=== PATIENT | female | born 1980 | race Caucasian/White ===

== ENCOUNTER 2021-11-30 11:13 | Outpatient (RCR) | payer OTHER, SELFPAY ==
[2021-11-30 12:37] LABS: Hematocrit 30.4 % (37.0-47.0); Hemoglobin 10.2 g/dL (12.0-15.0)
[2021-11-30 13:03] LABS: Glucose 1 Hour PP 50gm Dose 129 mg/dL
[2021-11-30 13:11] LABS: Vitamin D 25 Hydroxy 56.5 ng/mL
[2021-11-30 13:31] LABS: HIV 1/2 Ab P24 Ag Result Negative (Negative)
[2021-11-30] MEDS: RHO(D) IMMUNE GLOBULIN 300 MCG/2 ML SYRINGE IM (16:26)
== END 2022-02-28 23:59 | disposition home or self-care (01) ==
LOC: ANHLAB 11:13
PROVIDERS: PCP Family Medicine; Visit Provider Obstetrics & Gynecology Gynecology
DX: Z11.4 Encounter for screening for human immunodeficiency virus [HIV] (principal); Z29.13 Encounter for prophylactic Rho(D) immune globulin; O36.0190 Maternal care for anti-D [Rh] antibodies, unspecified trimester, not applicable or unspecified; Z3A.00 Weeks of gestation of pregnancy not specified
CPT/HCPCS: 36415; 82306; 82947; 85014; 85018; 85461; 86703; 90384; 96372; G0432; J2790

== ENCOUNTER 2022-03-01 05:11 | Inpatient (IN) | payer OTHER, SELFPAY ==
[2022-03-01] VITALS (120 sets, daily range): BP systolic 63–143; BP diastolic 29–94; PULSE 25–123; RESP 14–18; TEMP 36.1–36.9; O2SAT 81–100
[2022-03-01 05:54] LABS: Basophils Absolute Auto 0.1 K/mm3 (0.0-0.1); Basophils Percent Auto 0.6 % (0.2-1.2); Eosinophils Absolute Auto 0.1 K/mm3 (0-0.3); Eosinophils Percent Auto 0.9 % (0-4.4); Hematocrit 38.7 % (37.0-47.0); Hemoglobin 12.8 g/dL (12.0-15.0); Immature Granulocyte Absolute 0.08 K/mm3 (0.00-0.031); Immature Granulocyte Percent A 0.9 % (0-0.5); Lymphocytes Absolute Auto 1.37 K/mm3 (0.9-3.2); Lymphocytes Percent Auto 15.9 % (18.3-44.2); Mean Corpuscular HGB Conc 33.1 g/dl (32-36); Mean Corpuscular Hemoglobin 35.1 pg (26-34); Mean Platelet Volume 10.5 fl (7.4-10.4); Monocytes Absolute Auto 0.5 K/mm3 (0.1-0.6); Monocytes Percent Auto 5.7 % (2.6-8.5); Neutrophils Absolute Auto 6.6 K/mm3 (1.3-6.7); Platelet Count Result 135 k/mm3 (150-375); Red Blood Count 3.65 M/mm3 (4.2-5.4); Red Cell Distribution Width 14.4 % (11.5-14.5); White Blood Count 8.6 K/mm3 (4.5-10.0)
--- NOTE | 2022-03-01 05:54 | LDADM ---
This patient, Lourdes Rosen, was admitted to Labor/Delivery/Recovery 107 on 03/01/22 at 05:11. Plans for labor, pain management and were discussed with patient. Patient/family oriented to hospital policies and general routines including ID bracelet, bed and alarms, visiting hours, pain management, procedures, bathroom and other care routines, personal items, smoking policy, room service/diet and guest tray routines, infant security routines, and visiting hours. Patient/Family are encouraged to report perceived risks to care and to ask questions if they do not understand what they are told or what they should do. See OBIX for further documentation.
[2022-03-01] MEDS: LACTATED RINGERS 1,000 ML 125 ML IV CONT ×2 (06:38→10:39)
[2022-03-01] MEDS: OXYTOCIN 30 UNITS/NS 500 ML 30 UNITS/500 ML BAG IV CONT (06:38)
[2022-03-01 06:49] LABS: HIV 1/2 Ab P24 Ag Result Negative (Negative)
--- NOTE | 2022-03-01 08:14 | WPDOBADMIT ---
Obstetrics - Admit Note Admission Note: record reviewed. No pertinent additions to the history and/or any subsequent changes in the physical findings that are not consistent with the expected course of the were found. Additions to the history and/or subsequent changes in the physical findings follow. Here for MIL at 39 wks. Cervix 2-3/50/-2 posterior. AROM with clear fluid. FHTs category I. Continue Pitocin per protocol. Plans epidural.
[2022-03-01 14:41] LABS: Rapid Plasma Reagin Non-Reactive (NonReactive)
--- NOTE | 2022-03-01 14:50 | PM.OBPRVD ---
OB - Delivery Note Procedure Delivery date: 03/01/22 Procedure: Events: Other (39 wk MIL) Induction method: AROM and Per Pitocin Protocol Delivery monitor: External FHT and External Uterine Route of delivery: Laceration Description: Perineal - 2nd Degree Delivery repair: vicryl (3-0) Specimen: No Quantitative Blood Loss (ml): 300 Anesthesia type: Epidural Disposition: Floor Baby Date of : 03/01/22 Weeks of gestation at delivery: 39 Infant gender: Male Weight (pounds): 8 Weight (ounces): 15 presentation: vertex position: Right Occiput Anterior Placenta delivery description: Spontaneous Cord Vessel Description: 3 Vessels score one minute: 8 score five minutes: 9
--- NOTE | 2022-03-01 14:51 | PM.OBDSVD ---
DS: Admitting Diagnosis Discharge Date 03/02/22 Admitting Diagnosis IUP 39 wks for MIL DS: Discharge Diagnosis Discharge Diagnosis (1) (normal spontaneous vaginal delivery): Code(s): O80 - Encounter for full-term uncomplicated delivery Status: Acute OB - DS: Summary OB Procedures : Ultrasound OB Procedures Intrapartum: Spontaneous Vag Delivery OB Procedures: : None Peripartum Data Infant Delivery Method: Natural Vaginal Laceration Description: Perineal - 2nd Degree Status at Discharge Functional status at discharge: independent ambulation Overall status at discharge: patient is progressing back to baseline Time Spent with Patient Time attestation: Total time spent providing and/or coordinating discharge services: DS: Data Data Completed and Pending Labs on day of discharge: Labs from last 24 hours 03/01/22 03/01/22 03/01/22 06:25 05:42 05:42 WBC 8.6 RBC 3.65 L Hgb 12.8 Hct 38.7 MCV 106.0 H MCH 35.1 H MCHC 33.1 RDW 14.4 Plt Count 135 L MPV 10.5 H Immature Gran % (Auto) 0.9 H Neut % (Auto) 76.0 H Lymph % (Auto) 15.9 L Dillon % (Auto) 5.7 Eos % (Auto) 0.9 Baso % (Auto) 0.6 Lymph # (Auto) 1.37 Dillon # (Auto) 0.5 Eos # (Auto) 0.1 Baso # (Auto) 0.1 Abs Immat Gran (auto) 0.08 H Absolute Neuts (auto) 6.6 Absolute Nucleated RBC 0.0 Nucleated RBC % 0.0 RPR Non-reactive HIV 1&2 Ab/P24 Ag 4thGn Blood Type O Negative Antibody Screen Negative 03/01/22 05:42 WBC RBC Hgb Hct MCV MCH MCHC RDW Plt Count MPV Immature Gran % (Auto) Neut % (Auto) Lymph % (Auto) Dillon % (Auto) Eos % (Auto) Baso % (Auto) Lymph # (Auto) Dillon # (Auto) Eos # (Auto) Baso # (Auto) Abs Immat Gran (auto) Absolute Neuts (auto) Absolute Nucleated RBC Nucleated RBC % RPR HIV 1&2 Ab/P24 Ag 4thGn Negative Blood Type Antibody Screen Discharge Plan Discharge Attending physician on discharge: Amelie Raygoza Discharging Clinician: Amelie Raygoza Anticipated Discharge Date/Time: 03/02/22 14:52 Patient Disposition: Home, Self-Care Activity: may shower and pelvic rest Diet: regular Patient Instructions: Antibiotic Form Stand Alone Forms: General Discharge Information Follow-up/Referrals: Amelie Raygoza MD [Physician] - 6 Weeks Discharge Medications: Continued ferrous sulfate [Iron (ferrous sulfate)] 325 mg (65 mg iron) Tablet 325 mg PO BID #2 Tablet 1 tablet PO DAILY cetirizine [Zyrtec] 10 mg Tablet 10 mg PO DAILY Discontinued aspirin [Anna Low Dose Aspirin] 81 mg Tablet,Delayed Release (Dr/Ec) 81 mg PO DAILY Date of admission: 03/01/22 05:11 Primary Care Provider: Mg,Shan Damon Admitting Provider: Amelie Raygoza Attending physician on admission: Amelie Raygoza Condition: Stable
[2022-03-01] MEDS: OXYTOCIN 30 UNITS/NS 500 ML 30 UNITS/500 ML BAG 125 UNITS IV CONT (15:11)
[2022-03-01] MEDS: BENZOCAINE 20% AER SPR (*SP) 56 GM CAN 1 SPRAY TOPICAL (16:19)
[2022-03-01] MEDS: WITCH HAZEL 40 PADS 1 PAD TOPICAL (16:19)
[2022-03-01] MEDS: IBUPROFEN 600 MG TABLET PO ×2 (16:19→22:21)
--- NOTE | 2022-03-01 16:49 | PC.NURSE ---
report given to MARIAH Quintero
--- NOTE | 2022-03-01 17:43 | OBPPTRN ---
Patient transferred to post room # 290 via wheelchair. Support person present. Oriented to unit, room, information board, rooming in, admission packet and security measures. Patient verbalizes understanding.
[2022-03-01] MEDS: ACETAMINOPHEN 325 MG TABLET 650 MG PO (18:31)
[2022-03-02] MEDS: ACETAMINOPHEN 325 MG TABLET 650 MG PO ×3 (01:11→21:18)
[2022-03-02 03:34] VITALS: BP 108/69; PULSE 64; RESP 18; TEMP 36.3; O2SAT 99
[2022-03-02] MEDS: IBUPROFEN 600 MG TABLET PO ×4 (04:48→23:20)
[2022-03-02 05:24] LABS: Hematocrit 32.9 % (37.0-47.0); Hemoglobin 10.8 g/dL (12.0-15.0)
[2022-03-02 07:50] VITALS: BP 110/69; PULSE 64; RESP 16; TEMP 36.8; O2SAT 99
--- NOTE | 2022-03-02 08:41 | PM.OBPNVD ---
OB - PN: Subj Subjective Date/time seen: 03/02/22 08:41 Patient comments: no complaints and pain well controlled baby status: doing well OB - PN: Obj Data Labs CBC & Chem 7: 03/02/22 03:06 Labs: Laboratory Results - last 24 hr 03/01/22 03/02/22 05:42 03:06 Hgb 10.8 L Hct 32.9 L RPR Non-reactive OB - PN A/P Plan day: 1 Plan: routine care, discharge home, follow up 6 weeks and other (plans condoms while breast feeding) Time Spent With Patient Time: Total time spent is greater than 50% in coordination of care (as documented) at patient's floor/unit and/or counseling patient: Exam : Bimanual exam- vagina & uterus: other (Uterus firm, nt @U)
[2022-03-02] MEDS: MULTIVIT/MIN/PREN/FOL AC/IRON TABLET 1 TAB PO (08:58)
[2022-03-02] MEDS: DOCUSATE SODIUM 100 MG CAPSULE PO ×2 (08:58→17:30)
[2022-03-02 09:00] VITALS: PULSE 64; RESP 16; O2SAT 99
--- NOTE | 2022-03-02 10:28 | WPDANLDPN2 ---
Anes-Prog Note L&D Date/Time: 03/02/22 10:28 Comfortable throughout: labor and delivery Neuraxial method: epidural Epidural/Spinal procedure site: clean & non-tender Neuro status: Neuro function grossly intact. Cardiovascular status: normal Respiratory status: normal Airway patency: baseline Mental status: baseline Post-Op hydration status: normal Vital Signs: Last Vital Signs Temp 36.8 C 03/02/22 07:50 Pulse 64 03/02/22 07:50 Resp 16 03/02/22 07:50 BP 110/69 03/02/22 07:50 Pulse Ox 99 03/02/22 07:50 O2 Del Method Room Air 03/01/22 20:00 Pain score (VAS): 09/21 I/O: Intake & Output 03/01/22 03/02/22 03/02/22 23:59 07:59 15:59 Output Total 160 Balance -160 Patient feedback: Patient satisfied with anesthetic care.
[2022-03-02 12:07] VITALS: BP 113/67; PULSE 61; RESP 16; TEMP 36.7; O2SAT 100
[2022-03-02 12:30] VITALS: PULSE 61; RESP 16; O2SAT 100
--- NOTE | 2022-03-02 14:13 | PC.NURSE ---
[id number] - [id number] Introductions to patient had been made yesterday after the of her in L&D room 107. Hand expression had been demonstrated and encouraged to stimulate milk production early since mother wants to pump and feed her . Consulted with patient to assess needs related to pumping and feeding her infant. Mother works well with her . Reviewed understanding of milk production, consistent stimulation, suggestion for hand expression, breast compression/massage combined with electric pumping. Mother led conversation with her experience with feeding baby so far and has no questions at this time. Resources used to facilitate learning were used from the mom and baby guide. Mother voiced understanding of the education shared. Reported to the primary RN.
[2022-03-02 19:40] VITALS: BP 109/66; PULSE 61; RESP 14; TEMP 36.7; O2SAT 99
[2022-03-03] MEDS: IBUPROFEN 600 MG TABLET PO ×2 (06:47→14:28)
[2022-03-03] MEDS: DOCUSATE SODIUM 100 MG CAPSULE PO (06:47)
[2022-03-03] MEDS: MULTIVIT/MIN/PREN/FOL AC/IRON TABLET 1 TAB PO (06:48)
[2022-03-03 07:20] VITALS: BP 98/62; PULSE 59; RESP 16; TEMP 37.3; O2SAT 100
[2022-03-03 08:00] VITALS: PULSE 59; RESP 16; O2SAT 100
--- NOTE | 2022-03-03 09:29 | PM.OBPNVD ---
OB - PN: Subj Subjective Date/time seen: 03/03/22 2231 Patient comments: no complaints, pain well controlled and tolerating diet baby status: doing well, nursing well and other (Reports baby was under bili lights last night) [place] feeding status: exclusively breast feeding OB - PN: Obj Data Labs CBC & Chem 7: 03/02/22 03:06 OB - PN A/P Plan day: 2 Plan: discharge home Time Spent With Patient Time: Total time spent is greater than 50% in coordination of care (as documented) at patient's floor/unit and/or counseling patient: Review of Systems Review of Systems: All systems reviewed & are unremarkable except as noted in HPI and below Exam Narrative: Alert and oriented. Mood is pleasant and cooperative. Urinating without difficulty. Denies passing any large clots. Perineum with minimal edema. Const: General: no acute distress Orientation/consciousness: patient oriented x3 Limitations: no limitations Resp: Effort & Inspection: normal respiratory effort Auscultation: clear to auscultation bilaterally Cardio: Rate: regular rate GI: Inspection: normal to inspection Neuro: General: patient oriented x3 Extrem: General: normal to inspection Psych: Appearance: grossly normal Mental Status: mental status grossly normal Affect: normal affect Thought process: Normal thought process present
--- NOTE | 2022-03-03 09:33 | P.DS_ITS ---
DS: Admitting Diagnosis Discharge Date 03/03/22 Admitting Diagnosis IUP at 39 weeks. Induction of labor. Rh negative. DS: Discharge Diagnosis Discharge Diagnosis (1) (normal spontaneous vaginal delivery): Code(s): O80 - Encounter for full-term uncomplicated delivery Status: Acute (2) Rh negative status during : Code(s): O26.899 - Other specified related conditions, unspecified trimester; Z67.91 - Unspecified blood type, Rh negative Status: Acute Assessment and Plan: is A negative. No indication for Rhogam OB - DS: Summary Hospital Course Hospital Course: Uncomplicated OB Procedures : Ultrasound OB Procedures Intrapartum: Spontaneous Vag Delivery OB Procedures: : None Peripartum Data Infant Delivery Method: Natural Vaginal Laceration Description: Vaginal - 2nd Degree complications: none Status at Discharge Functional status at discharge: independent ambulation Overall status at discharge: patient is progressing back to baseline Time Spent with Patient Time attestation: Total time spent providing and/or coordinating discharge services: Exam Narrative: Alert and oriented. Mood is pleasant and cooperative. Urinating without difficulty. Denies passing any large clots. Perineum with minimal edema. Const: General: no acute distress Orientation/consciousness: patient oriented x3 Limitations: no limitations Resp: Effort & Inspection: normal respiratory effort Auscultation: clear to auscultation bilaterally Cardio: Rate: regular rate GI: Inspection: normal to inspection Neuro: General: patient oriented x3 Extrem: General: normal to inspection Psych: Appearance: grossly normal Mental Status: mental status grossly normal Affect: normal affect Thought process: Normal thought process pres ent Discharge Plan Discharge Attending physician on discharge: Amelie Raygoza Discharging Clinician: Amelie Raygoza Anticipated Discharge Date/Time: 03/02/22 14:52 Patient Disposition: Home, Self-Care Activity: may shower and pelvic rest Diet: regular Patient Instructions: Antibiotic Form Stand Alone Forms: General Discharge Information Follow-up/Referrals: Amelie Raygoza MD [Physician] - 6 Weeks Discharge Medications: New ibuprofen 600 mg Tablet 600 mg PO Q6H PRN (Reason: Cramping) 14 Days Qty: 30 0RF KPN Tablet 1 tab PO DAILY 30 Days Qty: 11 0RF Continued ferrous sulfate [Iron (ferrous sulfate)] 325 mg (65 mg iron) Tablet 325 mg PO BID #2 Tablet 1 tablet PO DAILY cetirizine [Zyrtec] 10 mg Tablet 10 mg PO DAILY Discontinued aspirin [Anna Low Dose Aspirin] 81 mg Tablet,Delayed Release (Dr/Ec) 81 mg PO DAILY Date of admission: 03/01/22 05:11 Primary Care Provider: Mg,Shan Damon Admitting Provider: Amelie Raygoza Attending physician on admission: Amelie Raygoza Condition: Stable
[2022-03-05 10:47] VITALS: BP 111/61; PULSE 61; RESP 16; TEMP 37.1; O2SAT 99
== END 2022-03-03 15:00 | disposition home or self-care (01) | DRG 807 ==
LOC: ANHLDR 14:52 → ANHOB2 17:52
PROVIDERS: Admitting Provider Obstetrics & Gynecology Gynecology; PCP Family Medicine; Visit Provider Obstetrics & Gynecology Gynecology
DX: O26.899 Other specified pregnancy related conditions, unspecified trimester (principal); Z37.0 Single live birth; Z3A.39 39 weeks gestation of pregnancy; Z67.91 Unspecified blood type, Rh negative; O36.8330 Maternal care for abnormalities of the fetal heart rate or rhythm, third trimester, not applicable or unspecified; O70.1 Second degree perineal laceration during delivery
CPT/HCPCS: 36415; 85014; 85018; 85025; 86592; 86703; 86850; 86900; 86901; A9270; G0432; J2590; J2795; J7120